=== PATIENT | male | born 1980 | race Caucasian/White ===

== ENCOUNTER 2017-04-25 09:58 | Emergency (ER) | payer OTHER ==
[~2017-04-25] VITALS: Ht 177.8 cm; Wt 70.3 kg
[2017-04-25] MEDS ORDERED: PREDNISONE 20 M20 MG PO (10:51)
[2017-04-25] MEDS ORDERED: CYCLOBENZAPRINE5 MG PO (10:51)
[2017-04-25] MEDS ORDERED: ULTRAM 50MG TAB50 MG PO (10:51)
== END 2017-04-25 10:59 | disposition home or self-care (01) ==
LOC: ER 09:58
DX: S16.1XXA Strain of muscle, fascia and tendon at neck level, initial encounter (principal); M54.12 Radiculopathy, cervical region; X58.XXXA Exposure to other specified factors, initial encounter; Y93.89 Activity, other specified; Y92.89 Other specified places as the place of occurrence of the external cause; Y99.8 Other external cause status

== ENCOUNTER 2017-07-17 14:12 | Emergency (ER) | payer OTHER ==
[~2017-07-17] VITALS: Ht 177.8 cm; Wt 68.0 kg
[~2017-07-17 14:12] MED LIST: CYCLOBENZAPRINE5 MG PO; PREDNISONE 20 M20 MG PO; ULTRAM 50MG TAB50 MG PO
[2017-07-17] MEDS ORDERED: FLEXERIL PO (14:21)
[2017-07-17] MEDS ORDERED: PREDNISONE 10 M10 MG PO (14:21)
[2017-07-17 14:38] VITALS: BP 121/87
== END 2017-07-17 14:39 | disposition home or self-care (01) ==
LOC: ER 14:12
DX: M54.12 Radiculopathy, cervical region (principal)